=== PATIENT | male | born 1970 | race Caucasian/White ===

== ENCOUNTER 2021-03-20 14:44 | Emergency (ER) | payer OTHER ==
[2021-03-20 15:09] VITALS: BP 134/82; PULSE 86; TEMP 98.4; BMI 43.0
== END 2021-03-20 17:23 | disposition home or self-care (01) ==
LOC: JER 14:44
DX: R07.0 Pain in throat (principal)
CPT/HCPCS: 99282-25

== ENCOUNTER 2021-09-12 08:10 | Emergency (ER) | payer OTHER ==
[2021-09-12 08:20] VITALS: BP 103/67; PULSE 105; TEMP 98.1; BMI 43.0
[2021-09-12] MEDS ORDERED: FAMOTIDINE 20 MG/50 ML IVPB 20 MG/50 ML MG IVPB ONE ×2 (08:42→09:01)
[2021-09-12] MEDS ORDERED: ACETAMINOPHEN 1000 MG/100 ML BAG IVPB ONE (08:42)
[2021-09-12] MEDS ORDERED: SODIUM CHLORIDE 1,000 ML IV STA (08:42)
[2021-09-12] MEDS ORDERED: ACETAMINOPHEN INJECTION 100 ML IVPB ONE (09:00)
[2021-09-12 09:40] LABS: BASO % 0.5 % (0-2.0); EOS % 1.1 % (0-4.5); HEMATOCRIT 39.2 % (35.4-49); HEMOGLOBIN 13.4 GM/dL (11.7-16.9); LYMPH % 23.9 % (8-40); MCH 29.5 pg (25.7-33.7); MCHC 34.1 g/dl (32.0-35.9); MEAN CELL VOLUME 86.5 fl (80-96); MEAN PLT VOLUME 8.1 fl (7.5-11.1); MONO % 13.5 % (3.8-10.2); PLATELET COUNT 250 10^3/uL (134-434); RBC 4.53 M/mm3 (4.00-5.60); RDW 12.6 % (11.9-15.9); WHITE BLOOD COUNT 7.4 K/mm3 (4.0-10.0)
[2021-09-12 09:41] LABS: URINE APPEARANCE CLEAR; URINE BILIRUBIN NEGATIVE (NEGATIVE); URINE COLOR YELLOW; URINE GLUCOSE (UA) NEGATIVE (NEGATIVE); URINE KETONE NEGATIVE (NEGATIVE); URINE LEUK ESTERASE NEGATIVE (NEGATIVE); URINE NITRITE NEGATIVE (NEGATIVE); URINE PROTEIN NEGATIVE (NEGATIVE); URINE UROBILINOGEN 0.2 mg/dL (0.2-1.0)
[2021-09-12 10:10] LABS: CALCIUM 9.6 mg/dL (8.5-10.1)
[2021-09-12 10:11] LABS: ALBUMIN 3.8 g/dl (3.4-5.0); BLOOD UREA NITROGEN 18.3 mg/dL (7-18)
[2021-09-12 10:14] LABS: CREATININE 0.8 mg/dL (0.55-1.3)
[2021-09-12 10:15] LABS: BILIRUBIN,TOTAL 0.4 mg/dL (0.2-1); TOT PROT 7.1 g/dl (6.4-8.2)
== END 2021-09-12 11:29 | disposition home or self-care (01) ==
LOC: JER 08:10
PROC: 3E033GC Introduction of Other Therapeutic Substance into Peripheral Vein, Percutaneous Approach (ICD-10-PCS; principal; 2021-09-12)
DX: R10.84 Generalized abdominal pain (principal); K21.9 Gastro-esophageal reflux disease without esophagitis
CPT/HCPCS: 36415; 74176-TC; 80053; 81003; 83690; 85025; 87086; 93005; 93010; 99285-25

== ENCOUNTER 2023-05-01 10:18 | Emergency (ER) | payer OTHER ==
[2023-05-01 10:26] VITALS: RESP 18; BMI 41.8
[2023-05-01] MEDS: clonazePAM 0.5 MG TABLET PO ONE (12:00)
[2023-05-01] MEDS ORDERED: clonazePAM 0.5 MG TABLET ONE (12:00)
[2023-05-01 12:04] LABS: POTASSIUM 3.9 mmol/L (3.5-5.1)
[2023-05-01 12:06] LABS: ALBUMIN 3.6 g/dl (3.4-5.0)
[2023-05-01 12:07] LABS: BASO % 0.7 % (0-2.0); BLOOD UREA NITROGEN 17.7 mg/dL (7-18); EOS % 1.1 % (0-4.5); HEMOGLOBIN 14.3 GM/dL (11.7-16.9); LYMPH % 29.7 % (8-40); MAGNESIUM 2.1 mg/dL (1.8-2.4); MCH 29.6 pg (25.7-33.7); MEAN CELL VOLUME 87.2 fl (80-96); MONO % 8.9 % (3.8-10.2); NEUT % 59.6 % (42.8-82.8); PLATELET COUNT 290 10^3/uL (134-434); RBC 4.82 M/mm3 (4.00-5.60); RDW 13.2 % (11.9-15.9); WHITE BLOOD COUNT 7.3 K/mm3 (4.0-10.0)
[2023-05-01 12:09] LABS: CREATININE 1.2 mg/dL (0.55-1.3)
[2023-05-01 12:11] LABS: BILIRUBIN,TOTAL 0.4 mg/dL (0.2-1); TOT PROT 7.3 g/dl (6.4-8.2)
[2023-05-01 13:45] LABS: POTASSIUM 4.3 mmol/L (3.5-5.1)
[2023-05-01 14:34] VITALS: BP 149/86; PULSE 87; TEMP 97.7
== END 2023-05-01 14:34 | disposition home or self-care (01) ==
LOC: JER 10:18
DX: R07.9 Chest pain, unspecified (principal); R06.02 Shortness of breath; I10 Essential (primary) hypertension; E78.5 Hyperlipidemia, unspecified; F32.A Depression, unspecified; F41.9 Anxiety disorder, unspecified; R20.2 Paresthesia of skin
CPT/HCPCS: 36415; 71046-TC-FY; 80053; 83690; 83735; 84132; 84484; 85025; 85379; 93005; 93010; 99291

== ENCOUNTER 2023-10-05 08:32 | Emergency (ER) | payer OTHER ==
[2023-10-05 08:44] VITALS: BP 146/95; PULSE 86; RESP 18; TEMP 98.5; BMI 39.3
[2023-10-05] MEDS ORDERED: ACETAMINOPHEN 325 MG TABLET (FP) ONE (09:49)
[2023-10-05] MEDS: ACETAMINOPHEN 325 MG TABLET (FP) PO ONE (09:51)
== END 2023-10-05 11:08 | disposition home or self-care (01) ==
LOC: JER 08:32
DX: M54.50 Low back pain, unspecified (principal); G89.29 Other chronic pain; K62.5 Hemorrhage of anus and rectum
CPT/HCPCS: 72100-TC-FY; 72220-TC-FY; 82272; 99284-25